=== PATIENT | female | born 2005 | race Caucasian/White ===

== ENCOUNTER 2025-01-28 12:38 | Emergency (ER) | payer OTHER, SELFPAY ==
[2025-01-28 12:45] VITALS: BP 122/70
[2025-01-28 14:01] VITALS: BP 106/63
[2025-01-28 14:08] VITALS: BMI 34.3
--- NOTE | 2025-01-28 14:21 | ED.GENMED ---
History of Present Illness
General
Chief Complaint: Dehydration Symptoms
Source: patient
Exam Limitations: none
Time Seen by Provider: 01/28/25 13:51
Nursing documentation reviewed up to this point in time: agreed with
History of Present Illness
History of Present Illness:
Patient is a 19-year-old female presenting with mom for evaluation of multiple complaints today. Patient states that over the past few days she has had intermittent subjective fevers associated with significant fatigue and headache. She feels a
mild tightness in her chest although denies any cough. She also reports sore throat over the past few weeks as well as mild diffuse abdominal pain and low appetite. This morning she did have an episode of vomiting. She denies any urinary
symptoms. She denies any diarrhea or constipation.
She does state that she has chronic migraines although this headache seems mildly more severe than typical.
Patient denies any hemoptysis or exogenous estrogen use. No recent travel or recent surgeries. No lower extremity pain or swelling.
Patient's mom that she returned home from college on Friday and felt that she looked extremely dehydrated. Patient states she has not been drinking enough water at college.
Past History
Past History
ED Past Medical History: None
ED Past Surgical History: None
Social History
Tobacco: Non-smoker
Alcohol: None
Drug: None
Personal: Single
Living: with family
Review of Systems
Review of Systems
Allergies reviewed?: Yes
All Other Systems: ROS reviewed and negative except as documented in HPI and ROS
Phy Exam
Physical Exam
Physical Exam:
Vitals: Patient's vital signs are stable. Afebrile
General: Patient is well appearing, no acute distress. Nontoxic appearing
Skin: Warm and dry, no rashes or lesions
Head: Normocephalic, atraumatic
Eyes: Sclera nonicteric. EOMs intact. No nystagmus.
Throat: Mild pharyngeal erythema. No tonsillar exudates. No STRINGED INSTRUMENT REPAIRER. Uvula midline. Protecting airway
Neck: Normal ROM, no cervical spine tenderness, no meningismus
Cardiac: Regular rate and rhythm, no murmurs. No reproducible chest wall tenderness.
Pulm: Normal respiratory effort, no wheezes, rales, rhonchi heard on exam.
Abdomen: Abdomen soft. Very mild diffuse tenderness. No rebound tenderness or guarding. No palpable organomegaly.
Extremities: No evidence of cyanosis or edema. Palpable DP pulses bilaterally
Neuro: AAOx3. Grossly intact.
Psychiatric: Normal affect.
Scores
PERC Rule Criteria
Age <50 years: Yes
HR <100 bpm: Yes
Room air oxygen sat >94%: Yes
History of DVT or PE: No
Recent trauma or surgery: No
Hemoptysis: No
Exogenous estrogen: No
Clinical signs suggestive of DVT: No
: No
Considered low risk for PE: Yes
PERC Score: 0
PE can be excluded by PERC: Yes
Course
Orders/Labs/Results
Orders:
Orders
01/28/25 12:47
EKG [Electrocardiogram (*1)] Urgent
Reason for Study: Abdominal Pain
EKG- Treatment ONCE
01/28/25 14:14
0.9% Sodium Chloride 1000 ml [Nss] 1,000 ml IV BOLUS
Ketorolac [Toradol] 15 mg IV NOW STA
01/28/25 14:15
Test Result ONCE
CR Chest - 2 Views Urgent
Comment:
Reason For Exam: chest tightness
01/28/25 14:35
COVID-19 Antigen Urgent
Source: Nasal Swab
Complete Blood Count/With Diff Urgent
Comprehensive Metabolic Panel Urgent
Direct Bilirubin Urgent
Comment: ADD ON
HCG, Serum Qualitative Screen Urgent
Lipase Urgent
Comment: ADD ON
Manual Differential Urgent
Monotest Urgent
Urinalysis Reflex To Culture Urgent
Date Specimen was Collected: 01/28/25
Time Specimen was Collected: 14:16
Urine Microscopic Reflex Cult Urgent
Influenza A+B Rapid Molecular Urgent
SKYLA Source: Nasal Swab
Specimen Description:
01/28/25 15:18
Add On- LAB Urgent
Tests Added?: lipase, direct bili
01/28/25 15:19
US Abdomen Complete/Upper Urgent
Comment:
Reason For Exam: Abdominal pain, vomiting, elevated LFTs
01/28/25 16:27
Hepatitis A IgM Antibody Urgent
Hepatitis B Core Ab, IgM Urgent
Hepatitis B Surface Antibody Urgent
Hepatitis B Surface Antigen Urgent
Hepatitis C Antibody Urgent
Abnormal Lab Results
01/28/25
14:35
WBC 12.7 H 10^3/uL
(4.8-10.8)
Segmented Neutrophils 19 L %
(42-75)
BUN 6 L mg/dl
(7-17)
Creatinine 0.5 L mg/dL
(0.6-1.0)
Total Bilirubin 2.7 H mg/dl
(0.2-1.3)
Direct Bilirubin 2.2 H mg/dl
(0.0-0.4)
AST 265 H U/L
(14-36)
ALT 509 H* U/L
(0-35)
Alkaline Phosphatase 291 H U/L
(38-126)
Urine Ketones 2+ A
(Negative)
Ur Occult Blood Reflex 4+ A
(Negative)
Urine Bacteria (Reflex) Few A
(Negative)
Monoscreen Positive A
(Negative)
01/28/25 14:35
01/28/25 14:35
Vital Signs
Initial and Last Documented VS:
Initial Vital Signs
Temp Pulse Resp BP Pulse Ox
98.8 F 85 17 122/70 99
01/28/25 12:45 01/28/25 12:45 01/28/25 12:45 01/28/25 12:45 01/28/25 12:45
Last Documented Vital Signs
Temp Pulse Resp BP Pulse Ox
98.8 F 78 24 115/65 98
01/28/25 12:45 01/28/25 15:30 01/28/25 15:30 01/28/25 18:00 01/28/25 18:15
MDM/Problems Addressed
Differential Diagnosis Includes:
Not limited to: Viral illness, acute dehydration, migraine headache, tension headache, mono, anemia, etc.
MDM/Problems Addressed:
19-year-old female presenting with few days of viral symptoms and concerns of dehydration. No exertional chest pain or shortness of breath. Patient is afebrile on arrival with otherwise stable vital signs. Physical exam as above. Patient
well-appearing, in no apparent distress. She does have mild pharyngeal erythema although no evidence of STRINGED INSTRUMENT REPAIRER. Heart regular rate and rhythm. Lungs clear bilaterally. Benign abdominal exam. No lower extremity edema or pain. Patient does have
history of chronic migraines with no focal neurologic deficits on exam today. Ultimately�Mo suspicious for underlying viral illness. No atypical features of headache or neurologic deficits, do not feel CT indicated at this time. Patient is PERC
negative without clinical evidence of DVT on exam. Do not suspect pulmonary embolism. Will check basic labs, viral studies. Will treat headache with IV fluids, Toradol. Will obtain chest x-ray and reassess.
Update: Labs reviewed. Mild leukocytosis. Chemistry significant for transaminitis along with elevated bilirubin and elevated alkaline phosphatase. Patient denies any history of alcohol abuse or current Tylenol use. No associated GI symptoms.
Will obtain hepatitis panel although patient states she is vaccinated and check abdominal ultrasound to rule out obstructive process. No significant electrolyte derangement noted on labs. Her headache has improved following Toradol and she remains
well-appearing.
Update: Monospot positive. Suspect this is ultimately contributing to patient's transaminitis. However�will proceed with abdominal ultrasound to rule out obstructive process.
Update: Ultrasound without evidence of obstruction. No splenomegaly. Given no findings of obstruction on imaging and positive monotest�do suspect elevated liver enzymes are secondary to acute monoinfection. This would explain majority of
patient's presenting symptoms, as well. Patient has no jaundice and is in no distress. She has no abdominal pain. She is very well and comfortable appearing. Headache has improved. Ultimately�feel patient stable for discharge home with primary
care follow-up. Discussed importance of repeat labs in a few weeks to trend LFTs. Close return precautions discussed. Advised to avoid contact sports,'s complaining of breasts, stable hydrated. Patient and patient's mom are comfortable with
plan. All questions answered.
Chronic conditions affecting care:
History of migraines
Acute Exacerbation and/or Progression of Chronic Illness:
N/A
*Radiology
Radiology exam reviewed: radiology read reviewed
*Pulse Oximetry
Patient hypoxic: no
*EKG
Interpreted by ED Provider?: Yes
EKG Intrepretation Date: 01/28/25
Interpretation: normal
Comparison EKG: no comparison EKG present
Heart Rate: 77
Rate: normal
Rhythm: sinus
[place]: normal axis
Interval: normal QT interval
QRS Pattern: normal QRS
Ischemia: no ischemia
*Smoking Tobacco Packer Hand Interpretation
Rate: Smoking Tobacco Packer Hand- N/A
*Critical Care Note
Total Time (30-74mins, 75-104mins- exclusive of procedures): Not Applicable
ED Attending Note
-
Portions of this chart may have been created with voice recognition software.� Occasional wrong word or��sound alike� substitutions may have occurred due to the inherent limitations of voice recognition software.
Discharge Plan
Departure
Patient Disposition: Home (Routine Discharge)
Date of Disposition: 01/28/25
Time of Disposition: 19:02
Patient with high blood pressure during this ER visit?: No
Condition: Good
Covid-19: Negative COVID-19
Discharge Problem:
Infectious mononucleosis, Elevated LFTs
Instructions: Mononucleosis
Prescriptions:
No Action
multivitamin Tablet
1 tab PO DAILY
fexofenadine [Tonya] 180 mg Tablet
180 mg PO DAILY
promethazine 25 mg Tablet
25 mg PO Q12H PRN (Reason: headache/dizzy)
metoprolol succinate 25 mg Tablet Extended Release 24 Hr
50 mg PO DAILY
hydroxyzine HCl 10 mg Tablet
10 mg PO HS PRN (Reason: sleep)
cholecalciferol (vitamin D3) [Vitamin D3] 50 mcg (2,000 unit) Capsule
50 mcg PO DAILY
Botox 200 unit Recon Soln
200 unit IM Q10W
rimegepant 75 mg Tablet,Disintegrating
75 mg PO ONCE PRN (Reason: migraine)
Ajovy Autoinjector 225 mg/1.5 mL Auto-Injector
225 mg SC QMONTH
Para-[place]
1 unit vaginal . DIRECTED
Referrals:
Brenton Verdugo I., DO [Family Provider] - Follow up in 10 days
Activity Restrictions/Additional Instructions:
RETURN TO THE EMERGENCY DEPARTMENT WITH ANY HIGH FEVERS, WORSENING HEADACHE, CHEST PAIN/SHORTNESS OF BREATH, SEVERE ABDOMINAL PAIN, JAUNDICE OF SKIN OR EYES, SEVERE SORE THROAT/DIFFICULTY SWALLOWING, WORSENING IN CURRENT SYMPTOMS, OR ANY OTHER
CONCERNS
- As discussed�your monotest was positive the emergency department. This is likely contributing to the majority of your symptoms. You were given IV Toradol and IV fluids. Avoid any contact sports and return to the emergency department any
abdominal trauma
-This is a viral illness and should resolve on its own. It is important stay well-hydrated and get plenty of rest. Take Motrin as needed for fevers or headache.
- Your LFTs were significantly elevated in the emergency department. This is likely secondary to mono. However�you should ensure that these are rechecked with your primary care in 2 weeks to ensure trending down. Avoid alcohol or Tylenol until
these have improved.
- Follow-up with your primary care for further evaluation/management to ensure that your symptoms are improving
Monitor your symptoms closely and return to the emergency department with any acute worsening/new symptoms or any other concerns
Interventions
Interventions:
*Risk Screen - Suicide Last Done: 01/28/25 12:44
*General Assessment Last Done: 01/28/25 12:44
*Neglect/Abuse Screening Last Done: 01/28/25 12:44
*ED- Fall Risk Assessment Last Done: 01/28/25 14:08
*ED COVID-19 Vaccine History Last Done: 01/28/25 12:44
*Nursing Disposition Last Done: 01/28/25 19:08
ED- Cardiac Assessment Last Done: 01/28/25 14:08
ED- Neurological Assessment Last Done: 01/28/25 13:52
ED- Pulmonary Assessment Last Done: 01/28/25 14:08
Discharge Date and Time
Discharge Date/Time: 01/28/25 19:14
Print Language: GREEK
[2025-01-28] MEDS: TORADOL 15 MG IV (14:33)
[2025-01-28] MEDS: NSS 1000 IV (14:33)
[2025-01-28 14:49] LABS: Hematocrit 39.5 % (37.0-47.0); Hemoglobin 13.5 g/dL (12.0-16.0); Mean Corp Hgb Conc. 34.2 g/dL (33.0-37.0); Mean Corpuscular Volume 84.9 fL (81.0-99.0); Mean Platelet Volume 9.4 fL (7.4-10.4); Platelet Count 164 10^3/uL (130-400); Red Blood Cell Count 4.65 10^6/uL (4.20-5.40); Red Cell Dist. Width 13.1 % (11.5-14.5); White Blood Cell Count 12.7 10^3/uL (4.8-10.8)
[2025-01-28 14:52] LABS: Urine Albumin Negative (Neg - Trace); Urine Bilirubin Negative (Negative); Urine Character Clear (Clear); Urine Color Yellow; Urine Glucose Negative (Negative); Urine Ketone 2+ (Negative); Urine Leukocyte Negative (Negative); Urine Nitrite Negative (Negative); Urine Occult Blood 4+ (Negative); Urine Urobilinogen Negative (Neg - 1+)
[2025-01-28 15:00] VITALS: BP 139/66
[2025-01-28 15:01] LABS: HCG, Serum Qualitative Screen Negative
[2025-01-28 15:07] LABS: Urine Bacteria Few (Negative); Urine White Cell 0-2 /HPF (0-5)
[2025-01-28 15:08] LABS: Urine Red Blood Cell 0-2 /HPF (0-2)
[2025-01-28 15:10] LABS: ALT (SGPT) 509 U/L (0-35); AST (SGOT) 265 U/L (14-36); Albumin 4.5 g/dl (3.5-5.0); Alkaline Phosphatase 291 U/L (38-126); Blood Urea Nitrogen 6 mg/dl (7-17); Carbon Dioxide 24 mmol/L (22-30); Chloride 103 mmol/L (98-107); Estimated Creatinine Clearance > 125 ml/min; Glucose 89 mg/dl (70-99); Potassium 3.9 mmol/L (3.5-5.1); Sodium 138 mmol/L (135-145); Total Bilirubin 2.7 mg/dl (0.2-1.3); Total Protein 7.2 g/dl (6.3-8.2); eGFR > 60.00
[2025-01-28 15:11] LABS: COVID-19 Antigen Negative (Negative)
[2025-01-28 15:16] LABS: Monotest Positive (Negative)
[2025-01-28 15:54] LABS: Direct Bilirubin 2.2 mg/dl (0.0-0.4); Lipase 219 U/L (23-300)
[2025-01-28 16:15] LABS: Absolute Neutrophils -Man Diff 2.4 10^3/uL (1.4-6.5); Atypical Lymphocytes 26 %; Band Neutrophils 0 % (0-3); Lymphocytes 50 % (20-51); Monocytes 5 % (2-9); Segmented Neutrophils 19 % (42-75)
[2025-01-28 16:16] LABS: Normal RBC Morphology Yes; Platelets Checked Yes; Total Cells Counted 100
[2025-01-28 16:29] VITALS: BP 108/65
[2025-01-28 17:00] VITALS: BP 107/68
[2025-01-28 17:22] LABS: Hepatitis B Surface Antigen Negative (Negative)
[2025-01-28 17:28] LABS: Hepatitis A IgM Antibody Negative (Negative); Hepatitis B Core Ab, IgM Negative (Negative)
[2025-01-28 17:39] LABS: Hepatitis B Surface Antibody Positive; Hepatitis C Antibody Negative (Negative)
[2025-01-28 18:00] VITALS: BP 115/65
== END 2025-01-28 19:14 | disposition home or self-care (01) ==
LOC: EMR 12:38
PROVIDERS: Physician Assistant; EMERGENCY PHYSICIAN Emergency Medicine; FAMILY PHYSICIAN Internal Medicine
DX: B27.90 Infectious mononucleosis, unspecified without complication (principal); R79.89 Other specified abnormal findings of blood chemistry; E86.0 Dehydration
CPT/HCPCS: 99284; 96374; 71046; 76700; 80053; 81003; 81015; 82248; 83690; 84703; 85025; 86308; 86705; 86706; 86709; 86803; 87340; 87502; 87811; 93005

== ENCOUNTER 2025-09-03 22:53 | Emergency (ER) | payer OTHER, SELFPAY ==
[2025-09-03 22:57] VITALS: BP 106/70
[2025-09-03 23:14] VITALS: BMI 35.4
[2025-09-03 23:18] VITALS: BP 101/52
[2025-09-03] MEDS: SOLU-MEDROL PF 60 MG IV (23:20)
[2025-09-03 23:48] VITALS: BP 99/61
--- NOTE | 2025-09-03 23:58 | ED.GENMED ---
History of Present Illness
General
Chief Complaint: Allergic Reaction
Time Seen by Provider: 09/03/25 23:05
History of Present Illness
History of Present Illness:
20-year-old female presents to the emergency department for evaluation of an itching throat. She has a known history of a tree nut allergy and accidentally ingested some almond butter at approximately 2145 tonight. She states that her throat feels
tight and is having some abdominal discomfort. She took 50 mg of Benadryl at 2225. Denies any dyspnea or facial swelling/rashes at this time. She does have EpiPen's but did not use them
Past History
Past History
ED Past Medical History: None
ED Past Surgical History: None
Social History
Tobacco: Non-smoker
Alcohol: None
Drug: None
Personal: Single
Living: with family
Review of Systems
Review of Systems
Allergies reviewed?: Yes
All Other Systems: ROS reviewed and negative except as documented in HPI and ROS
Phy Exam
Physical Exam
Physical Exam:
GEN: Well appearing, NAD, WDWN
HEENT: Oral mucosa moist, no scleral icterus, oropharynx clear
Cardiac: Regular rate and rhythm, no murmur
Lung: No respiratory distress, no tachypnea, lungs clear to auscultation
MSK: No gross deformity or injuries
Skin: Good color, no pallor or jaundice, no rashes
Neuro: AO x3, moves all extremities freely
Psych: Calm, cooperative
Course
Orders/Labs/Results
Orders:
Orders
09/03/25 23:12
MethylPREDNISolone PF [Solu-Medrol Pf] 60 mg IV NOW STA
Vital Signs
Initial and Last Documented VS:
Initial Vital Signs
Temp Pulse Resp BP Pulse Ox
97.8 F 74 22 106/70 100
09/03/25 22:57 09/03/25 22:57 09/03/25 22:57 09/03/25 22:57 09/03/25 22:57
Last Documented Vital Signs
Temp Pulse Resp BP Pulse Ox
98.1 F 56 24 98/59 99
09/03/25 23:41 09/04/25 00:45 09/04/25 00:45 09/04/25 00:30 09/04/25 00:45
MDM/Problems Addressed
MDM/Problems Addressed:
Patient helio stable in the ED, no need for epinephrine. EpiPen refill provided
*Pulse Oximetry
SaO2: 99
Oxygen Mode of Delivery: Room air
Patient hypoxic: no
*Critical Care Note
Total Time (30-74mins, 75-104mins- exclusive of procedures): Not Applicable
ED Attending Note
-
Portions of this chart may have been created with voice recognition software.� Occasional wrong word or��sound alike� substitutions may have occurred due to the inherent limitations of voice recognition software.
Discharge Plan
Departure
Patient Disposition: Home (Routine Discharge)
Date of Disposition: 09/04/25
Time of Disposition: 00:46
Patient with high blood pressure during this ER visit?: No
Discharge Problem:
Allergic reaction
Instructions: Allergic reaction - ED (DC)
Prescriptions:
New
epinephrine [EpiPen] 0.3 mg/0.3 mL auto-injector
0.3 mg IM ONCE Qty: 2 0RF
methylprednisolone [Medrol (Jose)] 4 mg tablets,dose pack
See Rx Instructions .ROUTE .COMPLEX Qty: 21 0RF
Rx Instructions:
orally per package directions
No Action
multivitamin Tablet
1 tab PO DAILY
fexofenadine [Tonya] 180 mg Tablet
180 mg PO DAILY
promethazine 25 mg Tablet
25 mg PO Q12H PRN (Reason: headache/dizzy)
metoprolol succinate 25 mg Tablet Extended Release 24 Hr
50 mg PO DAILY
hydroxyzine HCl 10 mg Tablet
10 mg PO HS PRN (Reason: sleep)
cholecalciferol (vitamin D3) [Vitamin D3] 50 mcg (2,000 unit) Capsule
50 mcg PO DAILY
Botox 200 unit Recon Soln
200 unit IM Q10W
rimegepant 75 mg Tablet,Disintegrating
75 mg PO ONCE PRN (Reason: migraine)
Ajovy Autoinjector 225 mg/1.5 mL Auto-Injector
225 mg SC QMONTH
Para-[place]
1 unit vaginal . DIRECTED
Referrals:
Brenton Verdugo I., DO [Family Provider, Internal Medicine]
Activity Restrictions/Additional Instructions:
Do not begin the steroids unless your symptoms reoccur tomorrow
Interventions
Interventions:
*Risk Screen - Suicide Last Done: 09/03/25 22:57
*General Assessment Last Done: 09/03/25 23:14
*Neglect/Abuse Screening Last Done: 09/03/25 22:57
*ED- Fall Risk Assessment Last Done: 09/03/25 23:14
*ED COVID-19 Vaccine History Last Done: 09/03/25 23:14
*ED Influenza Vaccine History Last Done: 09/03/25 23:14
*Nursing Disposition Last Done: 09/04/25 01:10
ED- Cardiac Assessment Last Done: 09/03/25 23:15
ED- Pulmonary Assessment Last Done: 09/03/25 23:15
ED-Skin Assessment Last Done: 09/03/25 23:15
Discharge Date and Time
Discharge Date/Time: 09/04/25 01:11
Print Language: TELUGU
[2025-09-04] VITALS: BP 96/60
[2025-09-04 00:30] VITALS: BP 98/59
== END 2025-09-04 01:11 | disposition home or self-care (01) ==
LOC: EMR 22:53
PROVIDERS: EMERGENCY PHYSICIAN Student in an Organized Health Care Education/Training Program; FAMILY PHYSICIAN Internal Medicine
DX: R09.89 Other specified symptoms and signs involving the circulatory and respiratory systems (principal); T78.19XA Other adverse food reactions, not elsewhere classified, initial encounter; X58.XXXA Exposure to other specified factors, initial encounter; Z91.018 Allergy to other foods
CPT/HCPCS: 96374; 99284